=== PATIENT | male | born 1960 | race Caucasian/White ===

== ENCOUNTER 2017-10-20 18:33 | Emergency (ER) | payer MEDICAID, OTHER ==
[~2017-10-20] VITALS: Ht 185.4 cm; Wt 102.0 kg
[2017-10-20] MEDS ORDERED: HYDR-3281 PO (18:45)
[2017-10-20] MEDS ORDERED: KETOROLAC 60MG/2ML VIAL IM ONE (19:45)
[2017-10-20] MEDS ORDERED: CYCLOBENZAPRINE 10MG TABLET PO ONE (19:45)
[2017-10-20 19:53] VITALS: BP 114/84
[2017-10-20] MEDS ORDERED: BACITRACIN ZINC OINT UDPKT TOP ONE (21:15)
== END 2017-10-20 21:30 | disposition home or self-care (01) ==
LOC: ER 18:48
DX: S82.491A Other fracture of shaft of right fibula, initial encounter for closed fracture (principal); M54.42 Lumbago with sciatica, left side; M51.26 Other intervertebral disc displacement, lumbar region; W19.XXXA Unspecified fall, initial encounter; Y93.89 Activity, other specified; Y92.89 Other specified places as the place of occurrence of the external cause; Y99.8 Other external cause status
CPT/HCPCS: 72100; 73562; 96372; 99284; J1885; Z7610